=== PATIENT | male | born 1975 ===

== ENCOUNTER 2022-05-05 14:02 | Emergency (ER) | payer MEDICAID, OTHER ==
[~2022-05-05] VITALS: Ht 182.9 cm; Wt 102.3 kg
[2022-05-05 15:30] VITALS: BP 200/125
[2022-05-05 16:50] LABS: APPEARANCE, URINE MANUAL CLEAR (CLEAR); BASO # 0.1 10^3/uL (0.0-0.2); BASO % 1.1 % (0.0-1.0); COLOR, URINE MANUAL YELLOW (YELLOW); EOS # 0.1 10^3/uL (0.0-0.5); HEMATOCRIT 58.5 % (42.0-52.0); HEMOGLOBIN 19.8 g/dl (13.5-17.5); LYMPH # 1.6 10^3/uL (1.5-5.0); LYMPH % 19.8 % (24.0-44.0); MEAN CORPUSCULAR HGB CONC 33.8 g/dl (32.0-36.5); MEAN CORPUSCULAR VOLUME 100.5 fl (80.0-96.0); MONO # 0.7 10^3/uL (0.0-0.8); MONO % 8.9 % (2.0-8.0); NEUTROPHILS # 5.5 10^3/uL (1.5-8.5); NEUTROPHILS % 68.6 % (36.0-66.0); PLATELET COUNT, AUTOMATED 177 10^3/uL (150-450); RED BLOOD COUNT 5.82 10^6/uL (4.30-6.10)
[2022-05-05 16:51] LABS: BILIRUBIN, URINE MANUAL NEGATIVE (NEGATIVE); BLOOD URINE MANUAL NEGATIVE (NEGATIVE); GLUCOSE, URINE (UA) MANUAL NEGATIVE (NEGATIVE); KETONE, URINE MANUAL NEGATIVE (NEGATIVE); LEUKOCYTE ESTERASE, URINE MAN NEGATIVE (NEGATIVE); NITRITE, URINE MANUAL NEGATIVE (NEGATIVE); PROTEIN, URINE MANUAL TRACE mg/dL (NEGATIVE); UROBILINOGEN, URINE MANUAL NORMAL (NORMAL)
[2022-05-05 17:07] LABS: BACTERIA, URINE SMALL AMOUNT; HYALINE CAST, URINE NONE SEEN /lpf (0-1); MUCUS, URINE SMALL AMOUNT (NEGATIVE); RBC, URINE 0-1 /hpf (0-3); SQUAMOUS EPITHELIAL CELL URINE SMALL AMOUNT /hpf (SMALL AMT); WBC, URINE 0-1 /hpf (0-3)
[2022-05-05 17:18] LABS: ALBUMIN 4.1 G/DL (3.2-5.2); ALKALINE PHOSPHATASE 115 U/L (46-116); ALT/SGPT 62 U/L (7.0-40); AST/SGOT 47 U/L (<34); BILIRUBIN,DIRECT 0.2 MG/DL (<0.4); BILIRUBIN,TOTAL 0.9 MG/DL (0.3-1.2); BLOOD UREA NITROGEN 10 MG/DL (9-23); CALCIUM LEVEL 9.5 MG/DL (8.5-10.1); CARBON DIOXIDE LEVEL 29 MMOL/L (20-31); CHLORIDE LEVEL 102 MMOL/L (98-107); CREATININE FOR GFR 0.72 MG/DL (0.70-1.30); GLOMERULAR FILTRATION RATE > 60.0 (>60); GLUCOSE, FASTING 89 MG/DL (60-100); POTASSIUM SERUM 3.8 MMOL/L (3.5-5.1); SODIUM LEVEL 139 MMOL/L (136-145); TOTAL PROTEIN 8.2 G/DL (5.7-8.2)
[2022-05-05 17:21] LABS: THYROID STIMULATING HORMONE 1.749 uIU/ML (0.55-4.78)
[2022-05-05] MEDS ORDERED: SPIR-10 PO (18:31)
[2022-05-05] MEDS ORDERED: HYDR12.55 PO (18:31)
[2022-05-05 20:00] LABS: MAGNESIUM LEVEL 1.9 MG/DL (1.8-2.4)
== END 2022-05-05 16:31 | disposition left against medical advice (07) ==
LOC: M ED 14:02
DX: I10 Essential (primary) hypertension (principal); I25.2 Old myocardial infarction; F41.9 Anxiety disorder, unspecified; F17.200 Nicotine dependence, unspecified, uncomplicated; F12.10 Cannabis abuse, uncomplicated; Z79.899 Other long term (current) drug therapy; Z53.9 Procedure and treatment not carried out, unspecified reason